=== PATIENT | female | born 1980 | race African-American/Black ===

== ENCOUNTER 2022-08-31 15:55 | Emergency (ER) | payer OTHER ==
[~2022-08-31] VITALS: Ht 152.4 cm; Wt 108.0 kg
[2022-08-31 16:01] VITALS: BP 139/77; TEMP 98.4
[2022-08-31 16:26] LABS: PLATELET COUNT 374 K/uL (152-353)
[2022-08-31 16:35] LABS: POTASSIUM 3.8 mmol/L (3.6-5.2)
== END 2022-08-31 18:24 | disposition home or self-care (01) ==
LOC: ED 15:55
PROVIDERS: Family Medicine
DX: N92.1 Excessive and frequent menstruation with irregular cycle (principal); D64.89 Other specified anemias; R42 Dizziness and giddiness; H65.191 Other acute nonsuppurative otitis media, right ear; H60.8X1 Other otitis externa, right ear
CPT/HCPCS: 80053; 81000; 82728; 83540; 83550; 85027; 99283